=== PATIENT | female | born 1970 | race Two or more races ===

== ENCOUNTER 2025-03-05 09:44 | Outpatient (CLI) | payer OTHER | END 2025-03-05 09:47 | disposition home or self-care (01) | LOC: RAD 09:44 | DX: M19.041 Primary osteoarthritis, right hand (principal); M19.042 Primary osteoarthritis, left hand; M17.11 Unilateral primary osteoarthritis, right knee; M17.12 Unilateral primary osteoarthritis, left knee ==

== ENCOUNTER 2025-03-20 08:00 | Outpatient (CLI) | payer OTHER ==
[2025-03-23 09:07] LABS: ESTRADIOL SERUM < 5.0 pg/mL (.)
== END 2025-03-20 08:15 | disposition home or self-care (01) ==
LOC: LAB 08:00
DX: N39.0 Urinary tract infection, site not specified (principal); I11.9 Hypertensive heart disease without heart failure; E78.3 Hyperchylomicronemia; E11.9 Type 2 diabetes mellitus without complications; E55.9 Vitamin D deficiency, unspecified; N95.1 Menopausal and female climacteric states

== ENCOUNTER → 2025-03-20 | Outpatient (CLI) | payer OTHER | END | disposition home or self-care (01) | LOC: SONOGRAMA 14:26 | DX: N60.21 Fibroadenosis of right breast (principal); N60.22 Fibroadenosis of left breast ==